=== PATIENT | female | born 1945 | race Caucasian/White ===

== ENCOUNTER 2017-09-21 10:10 | Day surgery (SDC) | payer MEDICARE, MEDICAID ==
[2017-09-21] VITALS (12 sets, daily range): BP systolic 124–173; BP diastolic 64–97
[~2017-09-21] VITALS: Ht 165.1 cm; Wt 89.5 kg
[2017-09-21] MEDS ORDERED: nitroGLYCERIN 0.4mg SUBLingual tab SL PRN (10:45)
[2017-09-21] MEDS ORDERED: LORazepam 0.5 MG tablet PO PRN (10:50)
[2017-09-21] MEDS ORDERED: diphenhydrAMINE 25mg capsule PO PRN (10:50)
[2017-09-21] MEDS ORDERED: normal saline 1000ml 1,000 ML IV SCH (10:50)
[2017-09-21] MEDS ORDERED: ALBU18HF2 INH (10:54)
[2017-09-21] MEDS ORDERED: CHOL10002 PO (10:54)
[2017-09-21] MEDS ORDERED: ATEN-169 PO (10:54)
[2017-09-21] MEDS ORDERED: MULT-38 PO (10:54)
[2017-09-21] MEDS ORDERED: ASPI-83 PO (10:54)
[2017-09-21] MEDS ORDERED: ACET650T11 PO (10:54)
[2017-09-21 11:24] LABS: INR 0.9 INR; PARTIAL THROMBOPLASTIN TIME 26 SECONDS (22-32); PROTHROMBIN TIME 9.6 SECONDS (9.0-12.0)
[2017-09-21] MEDS ORDERED: iohexol 350 MG/ML 50ML vial IV ONE (12:05)
[2017-09-21] MEDS ORDERED: LIDOcaine 1% w/EPI 1:100,000 30ml vial (MDV) ONE (12:05)
[2017-09-21] MEDS ORDERED: iohexol 350MG/ML 100ml bottle IV ONE (12:05)
[2017-09-21] MEDS ORDERED: fentaNYL/PF 50MCG/1 ML 2ML syringe ONE (12:21)
[2017-09-21] MEDS ORDERED: midazolam 2 mg/2 ml injection ONE (12:21)
[2017-09-21] MEDS ORDERED: ondansetron/PF 4mg/2ml inj IV PRN (13:25)
[2017-09-21] MEDS ORDERED: proCHLORperazine 10 MG/2 ml inj IV PRN (13:25)
[2017-09-21] MEDS ORDERED: OXAZEpam 15mg capsule PO PRN (13:25)
[2017-09-21] MEDS ORDERED: HYDROcodone/acetaminophen 10/325mg tab PO PRN (13:25)
[2017-09-21] MEDS ORDERED: HYDROcodone/acetaminophen 5mg/325mg tablet PO PRN (13:25)
[2017-09-21] MEDS ORDERED: acetaminophen 325mg tablet PO PRN (13:25)
== END 2017-09-21 19:00 | disposition home or self-care (01) ==
LOC: SSTAY O 10:10
PROVIDERS: ATTEND Internal Medicine Cardiovascular Disease
DX: I25.10 Atherosclerotic heart disease of native coronary artery without angina pectoris (principal); I48.2 Chronic atrial fibrillation; I10 Essential (primary) hypertension; M19.90 Unspecified osteoarthritis, unspecified site; Z96.651 Presence of right artificial knee joint; Z90.89 Acquired absence of other organs; Z90.711 Acquired absence of uterus with remaining cervical stump; Z87.891 Personal history of nicotine dependence; Z79.891 Long term (current) use of opiate analgesic; Z79.82 Long term (current) use of aspirin; Z79.899 Other long term (current) drug therapy
CPT/HCPCS: 36415; 71046; 85610; 85730; 93458; 99152; A4315; A6257; C1760; C1769; J1644; J2250; J3010; J3490; J7030; Q0163; Q9967; A4620